=== PATIENT | female | born 1965 | race Hispanic/Latino ===

== ENCOUNTER 2020-05-21 23:43 | Emergency (ER) | payer SELFPAY ==
[~2020-05-21] VITALS: Ht 160 cm; Wt 69.4 kg
[2020-05-22] MEDS ORDERED: EPINEPHRINE HCL 1:1000 1ML 1 MG/ML AMP SQ ONE (00:15)
[2020-05-22] MEDS ORDERED: DIPHENHYDRAMINE HCL INJ 50 MG/ML VIAL IV ONE (00:15)
[2020-05-22] MEDS ORDERED: METHYLPREDNISOLONE SOD SUCC 125 MG/2ML VIAL IV ONE (00:15)
[2020-05-22] MEDS ORDERED: EPINEPHRINE HCL 1:1000 1ML 1 MG/ML AMP ONE (00:23)
[2020-05-22] MEDS ORDERED: DIPHENHYDRAMINE HCL INJ 50 MG/ML VIAL ONE (00:23)
[2020-05-22] MEDS ORDERED: METHYLPREDNISOLONE SOD SUCC 125 MG/2ML VIAL ONE (00:24)
[2020-05-22] MEDS ORDERED: PREDNISONE20 MG PO (00:38)
== END 2020-05-22 01:35 | disposition home or self-care (01) ==
LOC: FSED 05-22 00:05
DX: T78.40XA Allergy, unspecified, initial encounter (principal); F17.200 Nicotine dependence, unspecified, uncomplicated
CPT/HCPCS: 99283; J0171; J1200; J2930